=== PATIENT | female | born 1975 | race African-American/Black ===

== ENCOUNTER 2020-04-14 12:40 | Emergency (ER) | payer SELFPAY ==
[2020-04-14] MEDS ORDERED: ONDANSETRON 4 MG/2 ML VIAL ONE (14:03)
[2020-04-14] MEDS ORDERED: MORPHINE 4 MG/ML SYR ONE (14:03)
[2020-04-14 14:13] LABS: Absolute Lymphocytes (CBC) 1.8 K/uL (0.7-4.9); Basophils % 1.2 % (0-1.3); Hematocrit 44.9 % (36.0-45.0); Lymphocytes % 18.5 % (15.3-44.8); MPV 8.6 fL (7.6-11.3); RBC Red Blood Cell Count 5.31 M/uL (3.86-4.86)
[2020-04-14 14:32] LABS: Bilirubin Total 0.4 mg/dL (0.2-1.0); Potassium 4.2 mmol/L (3.5-5.1); Protein, Total 8.7 g/dL (6.4-8.2)
--- NOTE | 2020-04-14 14:39 | RAD REPORT ---
EXAM DESCRIPTION: CT - Abdomen Pelvis W Contrast - 04/14/2020 2:26 pm CLINICAL HISTORY: ABD PAIN COMPARISON: No comparisons TECHNIQUE: Biphasic, helical CT imaging of the abdomen and pelvis was performed following 100 ml non -ionic IV contrast. No oral contrast was given. All CT scans are performed using dose optimization technique as appropriate and may include automated exposure control or mA/KV adjustment according to patient size. FINDINGS: No suspicious findings in the lung bases. Diffuse fatty infiltration is present in the liver. No focal liver lesions are identified. Spleen and pancreas show no suspicious findings. Cholecystectomy clips are present. No biliary tree dilatation. Symmetric renal function is seen with no hydronephrosis or suspicious renal mass. No pyelonephritis o r acute parenchymal process. Partially filled urinary bladder shows no suspicious findings. No adrena l abnormalities. Uterus and ovaries are not identified and presumed absent as part of prior surgery. There are numerous pelvic side wall and pelvic floor surgical clips. No pelvic floor or adnexal abnor mality seen. No dilated bowel loops or bowel wall thickening. No free air, free fluid or inflammatory stranding. No mass or bulky lymphadenopathy. No inguinal hernias are present. Patient has a 4 centimeter diamet er by 1.5 centimeter AP supraumbilical ventral hernia. The neck is 3 cm. The anti mesenteric wall of the midline transverse colon extends minimally into the hernia. No bowel wall thickening or edema at this site. No acute bone findings. Left femoral head and left hip joint show no suspicious findings. No periarti cular muscle or soft tissue abnormality seen. IMPRESSION: Contrast-enhanced CT imaging shows no abnormality to explain left hip pain. As detailed above, no acute or suspicious findings identifiable.
--- NOTE | 2020-04-14 14:45 | RAD REPORT ---
EXAM DESCRIPTION: RAD - Chest Single View - 04/14/2020 2:38 pm CLINICAL HISTORY: CHEST PAIN COMPARISON: None TECHNIQUE: AP portable chest image was obtained 04/14/2020 2:38 pm . FINDINGS: Lung volumes are low and significant overlying body habitus limit detail. No peripheral ma ss or consolidation. Mild failure or volume overload could be masked in this setting. Heart and vascu lature are normal. No measurable pleural effusion and no pneumothorax. No acute bony abnormality seen . No acute aortic findings suspected. IMPRESSION: Significantly limited portable study without peripheral mass or consolidation. Mild failure or volume overload can be masked.
[2020-04-14 14:47] LABS: Urine Blood NEGATIVE (NEG); Urine Glucose NEGATIVE (NEG); Urine Protein 1+ (NEG); Urine Specific Gravity 1.015 (1.005-1.030)
--- NOTE | 2020-04-14 15:33 | ER ---
Nurse's Notes [facility] Name: Anel Amrbocio Age: 44 yrs Sex: Female : 1975 Arrival Date: 04/14/2020 Time: 12:51 Bed 13 Private MD: Diagnosis: Abdominal tenderness;Low back pain Presentation: 04/14 12:56 Chief complaint: Left hip pain x 1 week. Pt reports pain started after she worked out hb and then moved furniture a week ago. Pain is worse with movement or cough. Coronavirus screen: At this time, the client does not indicate any symptoms associated with coronavirus-19. Ebola Screen: No symptoms or risks identified at this time. Initial Sepsis Screen: Does the patient meet any 2 criteria? No. Patient's initial sepsis screen is negative. Does the patient have a suspected source of infection? No. Patient's initial sepsis screen is negative. Risk Assessment: Do you want to hurt yourself or someone else? Patient reports no desire to harm self or others. Onset of symptoms was April 07, 2020. 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 - Social history:: Smoking status: Patient reports the use of cigarette tobacco products, denies chronic smoking, but will smoke occasionally. - Family history:: not pertinent. Screenin:10 Abuse screen: Denies threats or abuse. Nutritional screening: No deficits noted. ll1 Tuberculosis screening: No symptoms or risk factors identified. Fall Risk Gait- Weak (10 pts.). Total Bowden Fall Scale indicates No Risk (0-24 pts). Assessment: 13:09 General: Appears in no apparent distress. Behavior is calm, cooperative. Pain: ll1 Complains of pain in l hip Quality of pain is described as aching. Musculoskeletal: Circulation, motion, and sensation intact. Capillary refill < 3 seconds, Reports pain in L hip. Injury Description: Bruise. 14:05 Reassessment: Patient appears in no apparent distress at this time. No changes from ll1 previously documented assessment. Patient and/or family updated on plan of care and expected duration. Pain level reassessed. Patient is alert, oriented x 3, equal unlabored respirations, skin warm/dry/pink. 14:41 Reassessment: Patient appears in no apparent distress at this time. No changes from ll1 previously documented assessment. Patient and/or family updated on plan of care and expected duration. Pain level reassessed. Patient is alert, oriented x 3, equal unlabored respirations, skin warm/dry/pink. 15:30 Reassessment: Patient appears in no apparent distress at this time. No changes from ll1 previously documented assessment. Patient and/or family updated on plan of care and expected duration. Pain level reassessed. Patient is alert, oriented x 3, equal unlabored respirations, skin warm/dry/pink. 16:32 Reassessment: Patient appears in no apparent distress at this time. No changes from ll1 previously documented assessment. Patient and/or family updated on plan of care and expected duration. Pain level reassessed. Patient is alert, oriented x 3, equal unlabored respirations, skin warm/dry/pink. Vital Signs: 12:56 BP 160 / 100; Pulse 89; Resp 16; Temp 97.1; Pulse Ox 100% on R/A; Weight 113.4 kg; hb Height 5 ft. 2 in. (157.48 cm); Pain 10/10; 14:40 BP 151 / 102; Pulse 97; Resp 18; Pulse Ox 96% ; ll1 16:32 BP 151 / 101; Pulse 98; Resp 18; Pulse Ox 97% ; Pain 7/10; ll1 12:56 Body Mass Index 45.73 (113.40 kg, 157.48 cm) hb ED Course: 12:51 Patient arrived in ED. ds1 12:51 Javier Hussein MD is Attending Physician. hue 12:58 Triage completed. hb 13:00 Arm band placed on. hb 13:09 Mike Howell, RN is Primary Nurse. ll1 13:10 Patient has correct armband on for positive identification. Bed in low position. Call ll1 light in reach. Side rails up X 1. 14:00 Inserted saline lock: 20 gauge in left antecubital area, using aseptic technique. Blood kj1 collected. 14:00 Initial lab(s) drawn, by me, sent to lab. kj1 14:26 CT Abd/Pelvis - IV Contrast Only: ro hernia, diverticulitis In Process Unspecified. EDMS 14:38 Chest Single View XRAY In Process Unspecified. EDMS 15:32 Sebastian Greco MD is Referral Physician. [facility] 16:33 IV discontinued, intact, bleeding controlled, No redness/swelling at site. Pressure ll1 dressing applied. 16:33 No provider procedures requiring assistance completed. ll1 Administered Medications: 14:04 Drug: NS 0.9% 1000 ml Route: IV; Rate: 1 bolus; Site: left antecubital; ll1 16:34 Follow up: Response: No adverse reaction; RASS: Alert and Calm (0); IV Status: ll1 Completed infusion; IV Intake: 750ml 14:05 Drug: morphine 4 mg Route: IVP; Site: left antecubital; ll1 15:45 Follow up: Response: No adverse reaction; RASS: Alert and Calm (0) ll1 14:05 Drug: Zofran (Ondansetron) 4 mg Route: IVP; Site: left antecubital; ll1 16:33 Follow up: Response: No adverse reaction ll1 15:50 Drug: TORadol 30 mg Route: IVP; Site: left antecubital; ll1 16:33 Follow up: Response: No adverse reaction; Pain is decreased; RASS: Alert and Calm (0) ll1 15:50 Drug: Valium 5 mg Route: PO; ll1 16:33 Follow up: Response: No adverse reaction; Pain is decreased; RASS: Alert and Calm (0) ll1 Intake: 16:34 IV: 750ml; Total: 750ml. ll1 Outcome: 15:32 Discharge ordered by . [facility] 16:34 Discharged to home ambulatory. ll1 16:34 Condition: stable 16:34 Discharge instructions given to patient, Instructed on discharge instructions, follow up and referral plans. medication usage, Demonstrated understanding of instructions, follow-up care, medications, Prescriptions given X 2. 16:35 Patient left the ED. ll1 Signatures: Dispatcher [employer] EDJavier Starks MD MD cha Sanford, Demi ds1 Zohreh Gonsalves RN RN hb Jackson, Kandis kj1 Mike Howell RN RN ll1 Corrections: (The following items were deleted from the chart) 14:21 14:20 Initial lab(s) drawn, by me, sent to lab. kj1 kj1
--- NOTE | 2020-04-14 15:33 | EDPHYS ---
Physician Documentation [facility] Name: Anel Ambrocio Age: 44 yrs Sex: Female : 1975 Arrival Date: 04/14/2020 Time: 12:51 Bed 13 Private MD: MARISEL Physician Javier Hussein HPI: 04/14 13:47 This 44 yrs old Black Female presents to ER via Ambulatory with complaints of Side Pain.hue 13:47 The patient presents with abdominal pain in the left upper quadrant, in the left lower hue quadrant, abdominal distention in the upper abdomen, in the lower abdomen. Onset: The symptoms/episode began/occurred 3 day(s) ago. The patient complains of pain in the left low back and left mid back. The pain does not radiate. Modifying factors: The symptoms are alleviated by remaining still, the symptoms are aggravated by movement. Associated signs and symptoms: The patient has no apparent associated signs or symptoms. 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 - Social history:: Smoking status: Patient reports the use of cigarette tobacco products, denies chronic smoking, but will smoke occasionally. - Family history:: not pertinent. ROS: 13:47 Constitutional: Negative for fever, chills, and weight loss, Eyes: Negative for injury, hue pain, redness, and discharge, ENT: Negative for injury, pain, and discharge, Neck: Negative for injury, pain, and swelling, Cardiovascular: Negative for chest pain, palpitations, and edema, Respiratory: Negative for shortness of breath, cough, wheezing, and pleuritic chest pain, : Negative for injury, bleeding, discharge, and swelling, MS/Extremity: Negative for injury and deformity, Skin: Negative for injury, rash, and discoloration, Neuro: Negative for headache, weakness, numbness, tingling, and seizure, Psych: Negative for depression, anxiety, suicide ideation, homicidal ideation, and hallucinations, Allergy/Immunology: Negative for hives, rash, and allergies, Endocrine: Negative for neck swelling, polydipsia, polyuria, polyphagia, and marked weight changes, Hematologic/Lymphatic: Negative for swollen nodes, abnormal bleeding, and unusual bruising. 13:47 Abdomen/GI: Positive for abdominal distension, of the posterior aspect of left lateral abdomen, anterior aspect of left lateral abdomen, left upper quadrant and left lower quadrant. Exam: 13:47 Constitutional: This is a well developed, well nourished patient who is awake, alert, hue and in no acute distress. Head/Face: Normocephalic, atraumatic. Eyes: Pupils equal round and reactive to light, extra-ocular motions intact. Lids and lashes normal. Conjunctiva and sclera are non-icteric and not injected. Cornea within normal limits. Periorbital areas with no swelling, redness, or edema. ENT: Nares patent. No nasal discharge, no septal abnormalities noted. Tympanic membranes are normal and external auditory canals are clear. Oropharynx with no redness, swelling, or masses, exudates, or evidence of obstruction, uvula midline. Mucous membranes moist. Neck: Trachea midline, no thyromegaly or masses palpated, and no cervical lymphadenopathy. Supple, full range of motion without nuchal rigidity, or vertebral point tenderness. No Meningismus. Chest/axilla: Normal chest wall appearance and motion. Nontender with no deformity. No lesions are appreciated. Cardiovascular: Regular rate and rhythm with a normal S1 and S2. No gallops, murmurs, or rubs. Normal PMI, no JVD. No pulse deficits. Respiratory: Lungs have equal breath sounds bilaterally, clear to auscultation and percussion. No rales, rhonchi or wheezes noted. No increased work of breathing, no retractions or nasal flaring. Back: No spinal tenderness. No costovertebral tenderness. Full range of motion. Skin: Warm, dry with normal turgor. Normal color with no rashes, no lesions, and no evidence of cellulitis. MS/ Extremity: Pulses equal, no cyanosis. Neurovascular intact. Full, normal range of motion. Neuro: Awake and alert, GCS 15, oriented to person, place, time, and situation. Cranial nerves II-XII grossly intact. Motor strength 5/5 in all extremities. Sensory grossly intact. Cerebellar exam normal. Normal gait. Psych: Awake, alert, with orientation to person, place and time. Behavior, mood, and affect are within normal limits. 13:47 Abdomen/GI: Inspection: distension, that is mild, Bowel sounds: active, all quadrants, Palpation: moderate abdominal tenderness, in the posterior aspect of left lateral abdomen, anterior aspect of left lateral abdomen, left upper quadrant and left lower quadrant, Liver: no appreciated palpable abnormalities, Hernia: not appreciated. Vital Signs: 12:56 BP 160 / 100; Pulse 89; Resp 16; Temp 97.1; Pulse Ox 100% on R/A; Weight 113.4 kg; hb Height 5 ft. 2 in. (157.48 cm); Pain 10/10; 14:40 BP 151 / 102; Pulse 97; Resp 18; Pulse Ox 96% ; ll1 16:32 BP 151 / 101; Pulse 98; Resp 18; Pulse Ox 97% ; Pain 7/10; ll1 12:56 Body Mass Index 45.73 (113.40 kg, 157.48 cm) hb MDM: 13:24 Patient medically screened. [facility] 13:50 Data reviewed: vital signs, nurses notes, lab test result(s), radiologic studies, CT hue scan, plain films. 14:10 Differential diagnosis: UTI, diverticulitis, pancreatitis, bowel obstruction, hue diverticulitis, Irritable bowel syndrome, Mesenteric ischemia or infarction, non-specific abd pain, pancreatitis, Pyelonephritis, Ureterolithiasis, urinary tract infection. Data interpreted: life insurance specialist: not applicable for this patient encounter. rate is 89 beats/min, rhythm is regular, Pulse oximetry: on room air is 100 %. Test interpretation: by ED physician or midlevel provider: plain radiologic studies. Counseling: I had a detailed discussion with the patient and/or guardian regarding: the historical points, exam findings, and any diagnostic results supporting the discharge/admit diagnosis, lab results, radiology results, the need for outpatient follow up, for definitive care, a family practitioner. Medication response: Zofran markedly relieved the patient's nausea. Response to treatment: the patient's symptoms have markedly improved after treatment. ED course: labs, xrays explained, follow incouraged, return if worse. 15:32 ED course: pt much improved, meds given, plan explaned, will res follow up, return as hue needed. 04/14 13:46 Order name: CBC with Diff; Complete Time: 15:30 hue 08/20 13:46 Order name: Comprehensive Metabolic Panel; Complete Time: 15:30 hue 04/14 13:46 Order name: Urine Culture [facility] 04/14 13:46 Order name: Lipase; Complete Time: 15:30 [facility] 04/14 14:24 Order name: Urine Dipstick--Ancillary (enter results); Complete Time: 15:30 04/14 14:24 Order name: Urine --Ancillary (enter results); Complete Time: 15:30 04/14 13:46 Order name: Chest Single View XRAY; Complete Time: 15:30 [facility] 04/14 13:46 Order name: CT Abd/Pelvis - IV Contrast Only: ro hernia, diverticulitis; Complete Time: [facility] 15:30 04/14 14:46 Order name: CREATININE WHOLE BLOOD; Complete Time: 15:30 EDMS 04/14 13:46 Order name: Urine Dipstick-Ancillary (obtain specimen); Complete Time: 16:34 [facility] Administered Medications: 14:04 Drug: NS 0.9% 1000 ml Route: IV; Rate: 1 bolus; Site: left antecubital; 1 16:34 Follow up: Response: No adverse reaction; RASS: Alert and Calm (0); IV Status: ll1 Completed infusion; IV Intake: 750ml 14:05 Drug: morphine 4 mg Route: IVP; Site: left antecubital; ll1 15:45 Follow up: Response: No adverse reaction; RASS: Alert and Calm (0) 1 14:05 Drug: Zofran (Ondansetron) 4 mg Route: IVP; Site: left antecubital; 1 16:33 Follow up: Response: No adverse reaction ll1 15:50 Drug: TORadol 30 mg Route: IVP; Site: left antecubital; ll1 16:33 Follow up: Response: No adverse reaction; Pain is decreased; RASS: Alert and Calm (0) ll1 15:50 Drug: Valium 5 mg Route: PO; ll1 16:33 Follow up: Response: No adverse reaction; Pain is decreased; RASS: Alert and Calm (0) 1 Disposition: 04/14/20 15:32 Discharged to Home. Impression: Abdominal tenderness, Low back pain. - Condition is Stable. - Discharge Instructions: Abdominal Pain, Adult, Back Pain, Adult, Musculoskeletal Pain, Abdominal Pain, Adult, [id number], Back Pain, Adult, [id number]. - Prescriptions for Ibuprofen 600 mg Oral Tablet - take 1 tablet by ORAL route every 6 hours As needed take with food; 20 tablet. Valium 2 mg Oral Tablet - take 1 tablet by ORAL route every 8 hours As needed; 20 tablet. - Medication Reconciliation Form, Thank You Letter, Antibiotic Education, Prescription Opioid Use form. - Follow up: Private Physician; When: 2 - 3 days; Reason: Recheck today's complaints, Continuance of care, Re-evaluation by your physician. Follow up: Sebastian Greco MD; When: 2 - 3 days; Reason: Recheck today's complaints, Re-evaluation by your physician. - Problem is new. - Symptoms have improved. Signatures: Dispatcher [employer] EDMS Javier Hussein MD MD cha Baxter, Heather, RN RN Mike Howell RN RN ll1 Corrections: (The following items were deleted from the chart) 16:35 15:32 04/14/2020 15:32 Discharged to Home. Impression: Abdominal tenderness; Low back ll1 pain. Condition is Stable. Discharge Instructions: Abdominal Pain, Adult, Back Pain, Adult, Musculoskeletal Pain, Abdominal Pain, Adult, [id number], Back Pain, Adult, [id number]. Prescriptions for Ibuprofen 600 mg Oral Tablet - take 1 tablet by ORAL route every 6 hours As needed take with food; 20 tablet, Valium 2 mg Oral Tablet - take 1 tablet by ORAL route every 8 hours As needed; 20 tablet. and Forms are Medication Reconciliation Form, Thank You Letter, Antibiotic Education, Prescription Opioid Use. Follow up: Private Physician; When: 2 - 3 days; Reason: Recheck today's complaints, Continuance of care, Re-evaluation by your physician. Follow up: Dr. Sebastian Greco; When: 2 - 3 days; Reason: Recheck today's complaints, Re-evaluation by your physician. Problem is new. Symptoms have improved. hue
[2020-04-14] MEDS ORDERED: KETOROLAC 30 MG/ML INJ ONE (15:48)
[2020-04-14] MEDS ORDERED: DIAZEPAM 5 MG TABLET ONE (15:48)
[2020-04-14 16:59] VITALS: TEMP 97.1
[2020-04-14 17:01] VITALS: BP 151/101; O2SAT 97
== END 2020-04-14 16:35 | disposition home or self-care (01) ==
LOC: ER 12:40
DX: M54.5 Low back pain (principal); I10 Essential (primary) hypertension; Z85.43 Personal history of malignant neoplasm of ovary; Z88.5 Allergy status to narcotic agent; Z72.0 Tobacco use
CPT/HCPCS: 36415; 71045; 74177; 80053; 81003; 81025; 82565; 83690; 85025; 87086; 87088; 96361; 96374; 96375; 99284; J2405; Q9967